=== PATIENT | male | born 1955 | race Caucasian/White ===

== ENCOUNTER 2017-12-11 03:19 | Emergency (ER) | payer OTHER ==
[2017-12-11] MEDS ORDERED: ONDANSETRON 4 MG/2 ML VIAL IVP ONE (03:36)
[2017-12-11] MEDS ORDERED: NS 1,000 ML IV ONE (03:36)
--- NOTE | 2017-12-11 03:44 | EDPHY ---
H & P Stated Complaint: N, V, D Epigastric Pain after infusion. Time Seen by Provider: 12/11/17 03:36 HPI/ROS: CC: Epigastric discomfort HPI: This 62-year-old male with extensive past medical history including low rectal cancer, small-bowel obstruction, myxomatous mitral regurgitation s/p annuloplasty ring, coronary artery disease status post coronary artery bypass grafting, DVT and cauda equina syndrome as well as severe osteoporosis with compression fractures presents to the emergency department this evening complaining of epigastric pressure radiating through to his back that started in the middle of the night on Tuesday. On morning he had had his first infusion of Zoledronic acid for his osteoporosis. That night he woke up with chills, body aches, weakness, and dizziness. He called his primary care provider on Tuesday but they were not in the office and was advised to go to the urgent care which he did not do. His said he spent most of the day in bed and he said he was starting to feel better until Tuesday afternoon. At that time he had several episodes of loose stool. There was no melena or hematochezia. At 11:00 p.m. he developed epigastric discomfort which he describes as a pressure sensation that radiates through to his back. He states "it feels like there is a rock in my belly" but does not feel like when he had a bowel obstruction. The discomfort was 8/10 at its worst and was 6/10 on arrival to the ER. He felt nauseated and tried to induce vomiting. About 1:00 a.m. his states he woke up clammy. He has not had a fever and is no longer dizzy. He denies chest discomfort, neck, jaw, or arm discomfort. He has felt mildly short of breath with exertion but on further questioning he states this is chronic. He has a greater than 20 pack year history of smoking but quit in 1997. He denies lower abdominal pain, dysuria, leg pain or swelling. Prior to the infusion on he states he was feeling well in his usual health. REVIEW OF SYSTEMS: Constitutional: SEE HPI. Eyes: No discharge. ENT: No sore throat. Respiratory: No cough. Chronic dyspnea upon exertion. Cardiac: No chest pain, no palpitations. Gastrointestinal: See HPI. Genitourinary: No hematuria. Musculoskeletal: No back pain. Skin: No rashes. Neurological: No headache. Chronic LLE weakness due to h/o cauda equina. Source: Patient, Family, Old records Exam Limitations: Other (poor historian) - Personal History Current Tetanus/Diphtheria Vaccine: Unsure Current Tetanus Diphtheria and Acellular Pertussis (TDAP): Unsure Tetanus Vaccine Date: 2004 - Medical/Surgical History PMH: PAST MEDICAL AND SURGICAL HISTORY includes myxomatous mitral regurgitation with subsequent annuloplasty ring in April 2016. Rectal cancer in 2010 status post colorectal surgery and treated with chemotherapy and radiation therapy. Diverting colostomy with takedown. Post-operative DVT of the left leg x2 with subsequent vena cava filter and removal. Single vessel coronary artery disease status post coronary artery bypass grafting x1. Dilated valvular cardiomyopathy. Diastolic dysfunction. Postoperative paroxysmal atrial fibrillation/flutter with normal sinus rhythm restored by electrical cardioversion. Hypercholesterolemia. Cauda equina syndrome in 2014 treated with complex decompression and fusion of T10 through pelvis and subsequent residual left lower extremity weakness with footdrop. GI bleed. Acute blood loss anemia. Osteoporosis. Compression fractures. Umbilical hernia with herniorrhaphy. Right knee surgery. Right ankle surgery. FH: Mother in 2012 of CHF, she also had asthma; Father alive with h/o DVT , PE, Rheumatoid arthritis Allergies to Penicillin - rash; Demerol - nausea, Tramadol - bradycardia. Medications: ASA 81mg, Atorvastatin, Tylenol PM, Vitamin supplement. First infusion of Zoledronic Acid 12/08/17. Social History: Former smoker 1ppd for over 20 years; no current tobacco products, no alcohol, no marijuana. . PCP: Dr. Jody Zamudio Operations Supervisor 2Nd Shift: Dr. Wei Veras Hx Asthma: No Hx Chronic Respiratory Disease: No Hx Diabetes: No Hx Cardiac Disease: Yes Hx Renal Disease: No Hx Cirrhosis: No Hx Alcoholism: No Hx HIV/AIDS: No Hx Splenectomy or Spleen Trauma: No Other PMH: Osteoporosis, Colon Ca, Spinal [id number], CABG-MVR, Bowel Obstruction, Colon Rxn-Mariee, Reversal Colostomy - Family History Significant Family History: Asthma, Heart disease, Other (Rheumatoid Arthritis, DVT, PE) - Social History Smoking Status: Former smoker Alcohol Use: None Drug Use: None - Physical Exam Exam: General Appearance: Alert, mild distress. Eyes: Pupils equal and round no pallor or injection. ENT, Mouth: Mucous membranes are moist. Respiratory: There are no retractions, lungs are clear to auscultation but question diminished breath sounds on the right. Cardiovascular: Regular rate and rhythm. I do not appreciate a murmur at this time. Gastrointestinal: Abdomen is soft and nontender, slightly distended, no masses , bowel sounds hyperactive. Neurological: Awake and alert, LLE weakness. Skin: Warm and dry, no rashes. Musculoskeletal: Neck is supple, nontender. No CVA tenderness. Extremities: No warmth, cords or erythema. Pulses intact. Psychiatric: Patient is oriented X 3, there is no agitation. DIFFERENTIAL DIAGNOSIS: After history and physical exam differential diagnosis was considered for but not limited to: cardiac ischemia, pleural effusion, pancreatitis, bowel obstruction, ileus, medication side effect. Constitutional: Initial Vital Signs Temperature (C) 97.7 F 12/11/17 03:20 Heart Rate 99 12/11/17 03:20 Respiratory Rate 16 12/11/17 03:20 Blood Pressure 135/89 H 12/11/17 03:20 O2 Sat (%) 93 12/11/17 03:20 O2 Delivery Mode Room Air Allergies/Adverse Reactions: meperidine HCl [From Demerol] Allergy (Verified 12/11/17 04:14) GI Penicillins Allergy (Verified 12/11/17 04:14) Rash Home Medications: Medication Instructions Recorded Acetamn/Diphenhydramine 500/25 1 each PO HS 04/26/16 [Tylenol PM (*)] Calcium Carbonate/Vitamin D3 1 each PO DAILY 04/26/16 [Calcium 600-Vit D3 200 Tablet] Acetaminophen [Tylenol 325mg (*)] 325 - 650 mg PO Q4 PRN #0 tab 05/04/16 Aspirin [Aspirin 81mg (*)] 81 mg PO DAILY #0 tab.chew 05/04/16 Atorvastatin Calcium [Lipitor 10 10 mg PO HS #30 tab 05/04/16 mg (*)] Vitamin D3 12/11/17 Zoledronic Acid 12/11/17 Medical Decision Making - Diagnostics EKG Interpretation: EKG #1 Done at 3:46 a.m. Shows a normal sinus rhythm, heart rate 91, old inferior infarct, nonspecific T-wave abnormalities in the anterolateral leads. These nonspecific abnormalities are more pronounced than on previous EKG Dated May 03, 2016. EKG #2 Performed at 6:29 a.m. Shows a normal sinus rhythm with a heart rate of 94, old inferior infarct and nonspecific T-wave abnormalities anterolateral leads. Unchanged from EKG #1. Imaging Results: Chest x-ray showed sternotomy wire and surgical clips as well as an annuloplasty ring. No infiltrates, effusions, or pneumothorax. Plain films of the abdomen showed moderate stool, no significant dilated loops of bowel but a few scattered air-fluid levels. CT scan of the abdomen and pelvis with contrast per verbal radiology report shows no obstruction or other acute abnormalities. Imaging: Discussed imaging studies w/ body recall instructor Radiologist ED Course/Re-evaluation: The patient was seen and examined. Vital signs reviewed. The patient's oxygen saturation on room air would fluctuate from 88-96%. This is documented in an old record as well. The patient states he used to be on supplemental oxygen at night after his heart surgery but they told him he no longer needed it. He states while he is here the oxygen alarm sounds as he dozes off. I have advised him to follow up with his primary care provider regarding possible hypoxemia while he sleeps. The patient had 2 EKGs which showed no acute ischemic changes and 2 normal troponins. His CBC, comprehensive metabolic panel , lipase and magnesium were unremarkable. Lactic acid was normal as well. A chest x-ray which was performed because of what I perceived to be diminished breath sounds on the right on his physical exam as well as his fluctuating oxygen levels. CXR was unremarkable by my read. Plain films of his abdomen showed increased stool and scant air-fluid levels by my read. A CT of his abdomen and pelvis were performed and there was no evidence of obstruction or other acute abnormality by verbal radiology read. Patient received a L of IV fluids and Zofran and over the course of his ER stay his epigastric discomfort eventually resolved. I believe his symptoms were due to the side effects of his zoledronic acid infusion. He also has a moderate amount of stool on CT c/w constipation. I do not believe his epigastric discomfort is related to his heart. He will follow up with his primary care provider in the next 1-2 days or return to the emergency room sooner if any further problems or concerns. - Data Points Laboratory Results: Laboratory Results 12/11/17 04:00 12/11/17 04:00 12/11/17 12/11/17 12/11/17 06:25 04:00 04:00 WBC RBC Hgb Hct MCV MCH MCHC RDW Plt Count MPV Neut % (Auto) Lymph % (Auto) [place] % (Auto) Eos % (Auto) Baso % (Auto) Nucleat RBC Rel Count Absolute Neuts (auto) Absolute Lymphs (auto) Absolute Monos (auto) Absolute Eos (auto) Absolute Basos (auto) Absolute Nucleated RBC Immature Gran % Immature Gran # PT 13.9 SEC SEC (12.0-15.0) INR 1.08 (0.83-1.16) VBG Lactic Acid 1.0 mmol/L mmol/L (0.7-2.1) Sodium Potassium Chloride Carbon Dioxide Anion Gap BUN Creatinine Estimated GFR Glucose Calcium Magnesium Total Bilirubin Conjugated Bilirubin Unconjugated Bilirubin AST ALT Alkaline Phosphatase Troponin I < 0.012 ng/mL ng/mL (0.000-0.034) Total Protein Albumin Lipase 12/11/17 12/11/17 04:00 04:00 WBC 7.42 10^3/uL 10^3/uL (3.80-9.50) RBC 4.67 10^6/uL 10^6/uL (4.40-6.38) Hgb 15.2 g/dL g/dL (13.7-17.5) Hct 42.1 % % (40.0-51.0) MCV 90.1 fL fL (81.5-99.8) MCH 32.5 pg pg (27.9-34.1) MCHC 36.1 g/dL g/dL (32.4-36.7) RDW 12.2 % % (11.5-15.2) Plt Count 189 10^3/uL 10^3/uL (150-400) MPV 9.3 fL fL (8.7-11.7) Neut % (Auto) 80.4 % H % (39.3-74.2) Lymph % (Auto) 7.5 % L % (15.0-45.0) [place] % (Auto) 10.4 % % (4.5-13.0) Eos % (Auto) 0.9 % % (0.6-7.6) Baso % (Auto) 0.5 % % (0.3-1.7) Nucleat RBC Rel Count 0.0 % % (0.0-0.2) Absolute Neuts (auto) 5.96 10^3/uL 10^3/uL (1.70-6.50) Absolute Lymphs (auto) 0.56 10^3/uL L 10^3/uL (1.00-3.00) Absolute Monos (auto) 0.77 10^3/uL 10^3/uL (0.30-0.80) Absolute Eos (auto) 0.07 10^3/uL 10^3/uL (0.03-0.40) Absolute Basos (auto) 0.04 10^3/uL 10^3/uL (0.02-0.10) Absolute Nucleated RBC 0.00 10^3/uL 10^3/uL (0-0.01) Immature Gran % 0.3 % % (0.0-1.1) Immature Gran # 0.02 10^3/uL 10^3/uL (0.00-0.10) PT INR VBG Lactic Acid Sodium 141 mEq/L mEq/L (135-145) Potassium 4.3 mEq/L mEq/L (3.5-5.2) Chloride 106 mEq/L mEq/L (97-110) Carbon Dioxide 21 mEq/l L mEq/l (22-31) Anion Gap 14 mEq/L mEq/L (8-16) BUN 16 mg/dL mg/dL (7-23) Creatinine 0.9 mg/dL mg/dL (0.7-1.3) Estimated GFR > 60 Glucose 121 mg/dL H mg/dL (70-100) Calcium 9.2 mg/dL mg/dL (8.5-10.4) Magnesium 2.0 mg/dL mg/dL (1.6-2.3) Total Bilirubin 1.0 mg/dL mg/dL (0.1-1.4) Conjugated Bilirubin 0.3 mg/dL mg/dL (0.0-0.5) Unconjugated Bilirubin 0.7 mg/dL mg/dL (0.0-1.1) AST 45 IU/L IU/L (17-59) ALT 63 IU/L IU/L (21-72) Alkaline Phosphatase 85 IU/L IU/L (38-126) Troponin I < 0.012 ng/mL ng/mL (0.000-0.034) Total Protein 6.9 g/dL g/dL (6.3-8.2) Albumin 3.8 g/dL g/dL (3.5-5.0) Lipase 158 IU/L IU/L (23-300) Medications Given: Discontinued Medications Sodium Chloride (Ns) 1,000 mls @ 0 mls/hr IV EDNOW ONE; Wide Open PRN Reason: Protocol Stop: 12/11/17 03:37 Last Admin: 12/11/17 04:07 Dose: 1,000 mls Ondansetron HCl (Zofran) 4 mg IVP EDNOW ONE Stop: 12/11/17 03:37 Last Admin: 12/11/17 04:07 Dose: 4 mg Departure - Departure Disposition: Home, Routine, Self-Care Clinical Impression: Epigastric pain, Medication side effects Condition: Good Instructions: Zoledronic Acid (By injection), Constipation (ED), Epigastric Pain (ED) Additional Instructions: Follow up with your primary care provider in the next 1 - 2 days. Return to the ED if any change or worsening of symptoms as discussed. You should also discuss how your oxygen level drops when you sleep. You may need to go back on supplemental oxygen at night. Referrals: Aviva Zamudio MD [Medical Doctor] - As per Instructions
--- NOTE | 2017-12-11 03:48 | CPEKG ---
Heart Rate: 91 RR Interval: 659 P-R Interval: 188 QRSD Interval: 108 QT Interval: 364 QTC Interval: 448 P [place]: 66 QRS [place]: 4 T Wave [place]: 96 EKG Severity - ABNORMAL ECG - EKG Impression: SINUS RHYTHM EKG Impression: INFERIOR INFARCT, OLD EKG Impression: NONSPECIFIC T ABNORMALITIES, ANT-LAT LEADS Electronically Signed By: Kelsie Huizar 11-Dec-2017 04:13:49
[2017-12-11 04:10] LABS: PLATELET COUNT 189 10^3/uL (150-400)
[2017-12-11 04:23] LABS: INR 1.08 (0.83-1.16); PROTIME(PATIENT) 13.9 SEC (12.0-15.0)
[2017-12-11] MEDS ORDERED: IOPAMIDOL (ISOVUE-300) 100 ML BTL ONE (05:48)
--- NOTE | 2017-12-11 06:30 | CPEKG ---
Heart Rate: 94 RR Interval: 638 P-R Interval: 196 QRSD Interval: 106 QT Interval: 368 QTC Interval: 461 P [place]: 69 QRS [place]: 17 T Wave [place]: 91 EKG Severity - ABNORMAL ECG - EKG Impression: SINUS RHYTHM EKG Impression: INFERIOR INFARCT, OLD EKG Impression: LATERAL LEADS ARE ALSO INVOLVED Electronically Signed By: Kelsie Huizar 11-Dec-2017 07:25:13
[2017-12-11 06:36] VITALS: RESP 18; TEMP 98.6
[2017-12-11 07:52] VITALS: BP 127/83; PULSE 91; O2SAT 93
== END 2017-12-11 07:30 | disposition home or self-care (01) ==
LOC: CED 03:19
DX: R10.13 Epigastric pain (principal); T50.995A Adverse effect of other drugs, medicaments and biological substances, initial encounter; E86.9 Volume depletion, unspecified; Z79.82 Long term (current) use of aspirin; Z85.038 Personal history of other malignant neoplasm of large intestine; Z87.891 Personal history of nicotine dependence; Z95.1 Presence of aortocoronary bypass graft
CPT/HCPCS: 71046-PO; 74019-PO; 74177-PO; 80053-PO; 82248-PO; 83605-PO; 83690-PO; 83735-PO; 84484-PO; 85025-PO; 85610-PO; 96374; J2405; Q9967